=== PATIENT | male | born 1965 | race African-American/Black ===

== ENCOUNTER 2016-06-09 15:58 | Inpatient (IN) | payer OTHER ==
[~2016-06-09] VITALS: Ht 188 cm; Wt 123.7 kg
[~2016-06-09 15:58] MED LIST: ACYCLOVIR800 MG PO; CITALOPRAM HBR20 MG PO; DICLOFENAC SODI75 MG; FLEXERIL10 MG PO; HYDROCODON-ACE1 EAC5; LIDODERM 5% P1 PATCH; MOBIC15 MG PO; NAPROSYN500 MG PO; NORCO 5/3251 TABLET PO; PREDNISONE10 M1; SELENIUM SULFI118 ML; TRAMADOL HCL50 MG; ULTRAM50 MG PO; WELLBUTRIN100 MG PO
[2016-06-09] MEDS ORDERED: PERCOCET 7.51 TABLET PO (16:54)
[2016-06-09] MEDS ORDERED: MORPHINE SULFAT15 M1 PO (16:55)
[2016-06-09 19:41] LABS: HEMATOCRIT 42.3 % (38.0-50.0); MCH 30.1 PG (29.0-34.0); MCHC 34.5 G/DL (30.0-36.0); MCV 87.2 FL (86-99); MEAN PLAT.VOLUME 9.7 uM^3 (9.0-12.4); PLATELET COUNT 182 K/uL (156-360); RBC DIS.WIDTH-CV 14.4 % (11.8-14.6); RBC DIS.WIDTH-SD 45.4 % (39-53); RED BLOOD COUNT 4.85 M/uL (4.00-5.50); WHITE BLOOD COUNT 6.5 K/uL (4.1-10.2)
[2016-06-09 19:53] LABS: CHLORIDE 106 mEq/L (99-109); POTASSIUM 3.6 mEq/L (3.7-5.4); SODIUM 139 mEq/L (136-147)
[2016-06-09 19:55] LABS: GLUCOSE 138 mg/dL (70-99)
[2016-06-09 19:56] LABS: ANION GAP 9 MEQ/L (2-14)
[2016-06-09 19:57] LABS: TOTAL BILIRUBIN 0.6 mg/dL (0.0-1.0)
[2016-06-09 19:58] LABS: SERUM ETHYL ALCOHOL < 10 mg/dL
[2016-06-09 19:59] LABS: GFR ESTIMATE (CALCULATED) > 59 mL/min/
[2016-06-09 20:00] LABS: ALKALINE PHOSPHATASE 68 IU/L (3-129)
[2016-06-09 20:01] LABS: UREA NITROGEN (BUN) 14 mg/dL (9-23)
[2016-06-09 20:02] LABS: SALICYLATE < 5.0 MG/DL (15-30)
[2016-06-09 22:12] VITALS: BP 124/77
[2016-06-09] MEDS ORDERED: NAPRELAN750 MG PO (22:18)
[2016-06-09] MEDS ORDERED: ROBITUSSIN100 MG/5 M PO (22:28)
[2016-06-10] MEDS ORDERED: RELAFEN750 MG PO (00:13)
[2016-06-10 09:18] VITALS: BP 120/78
[2016-06-10 15:56] VITALS: BP 112/67
[2016-06-11 07:32] VITALS: BP 131/75
[2016-06-11 15:50] VITALS: BP 117/68
[2016-06-12 08:00] VITALS: BP 120/78
[2016-06-12] MEDS ORDERED: BUPROPION HCL150 M2 PO (11:34)
== END 2016-06-12 13:38 | disposition home or self-care (01) | DRG 885 ==
LOC: EME 15:58 → 1WEST 20:51 → EDOF 20:51 → 1WEST 22:04
PROVIDERS: Physician Assistant
DX: F33.9 Major depressive disorder, recurrent, unspecified (principal); F10.14 Alcohol abuse with alcohol-induced mood disorder; R45.851 Suicidal ideations; F23 Brief psychotic disorder; F14.10 Cocaine abuse, uncomplicated; R45.850 Homicidal ideations; F17.210 Nicotine dependence, cigarettes, uncomplicated; E66.3 Overweight; Z68.35 Body mass index [BMI] 35.0-35.9, adult
CPT/HCPCS: 80053; 81003; 84443; 85027; 90839; 99281; 99284; G0480

== ENCOUNTER 2016-08-19 07:04 | Emergency (ER) | payer OTHER ==
[~2016-08-19] VITALS: Ht 188 cm; Wt 119.7 kg
[~2016-08-19 07:04] MED LIST changes: +BUPROPION HCL150 M2 PO; +MORPHINE SULFAT15 M1 PO; +NAPRELAN750 MG PO; +PERCOCET 7.51 TABLET PO; +RELAFEN750 MG PO; +ROBITUSSIN100 MG/5 M PO
[2016-08-19 07:51] LABS: EOSINOPHIL (%) 1.8 % (0-5); EOSINOPHIL COUNT 0.1 K/uL (0-0.3); HEMATOCRIT 42.3 % (38.0-50.0); IMMATURE GRANULOCYTE (%) 0.3 % (0.0-0.7); INSTRUMENT ABS NEUTROPHIL CT 4.4 K/uL; LYMPHOCYTE COUNT 1.1 K/uL (1.0-2.8); MCH 31.3 PG (29.0-34.0); MCHC 34.8 G/DL (30.0-36.0); MEAN PLAT.VOLUME 9.5 uM^3 (9.0-12.4); MONOCYTE (%) 7.4 % (3-12); MONOCYTE COUNT 0.5 K/uL (0-0.8); NEUTROPHIL (%) 72.3 % (45-76); NEUTROPHIL COUNT 4.4 K/uL (1.8-6.4); PLATELET COUNT 202 K/uL (156-360); RBC DIS.WIDTH-CV 13.5 % (11.8-14.6); RBC DIS.WIDTH-SD 44.9 % (39-53); WHITE BLOOD COUNT 6.1 K/uL (4.1-10.2)
[2016-08-19 08:22] LABS: ANION GAP 10 MEQ/L (2-14); CHLORIDE 103 MEQ/L (99-109); POTASSIUM 3.7 MEQ/L (3.7-5.4); SAMPLE HEMOLYSIS CHECK 0; SAMPLE ICTERIC CHECK 0; SAMPLE LIPEMIA CHECK 0; SODIUM 139 MEQ/L (136-147)
[2016-08-19 08:29] LABS: GFR ESTIMATE (CALCULATED) > 59 mL/min/; GLUCOSE 84 mg/dL (70-99); SERUM ETHYL ALCOHOL < 10 mg/dL; UREA NITROGEN (BUN) 13 mg/dL (9-23)
[2016-08-19 12:17] LABS: ADD MIUA? YES; BILIRUBIN NEGATIVE; BLOOD SMALL; COLOR AMBER ((YELLOW)); GLUCOSE (STRIP) NEGATIVE; KETONES 20; LEUKOCYTES NEGATIVE; NITRITE NEGATIVE; PROTEIN (STRIP) 30; SPECIFIC GRAVITY 1.025 (1.000-1.030)
[2016-08-19 12:32] LABS: ADD MEDTOX COMMENT Y; AMPHETAMINE NEGATIVE (500 ng/mL); BARBITURATES NEGATIVE (200 ng/mL); BENZODIAZEPINES NEGATIVE (150 ng/mL); COCAINE PRESUMPTIVE POSITIVE (150 ng/mL); INTERNAL CONTROLS VALID? YES; METHADONE NEGATIVE (200 ng/mL); METHAMPHETAMINE NEGATIVE (500 ng/mL); OPIATES (MORPHINE) NEGATIVE (100 ng/mL); OXYCODONE NEGATIVE (100 ng/mL); PHENCYCLIDINE PRESUMPTIVE POSITIVE (25 ng/mL); PROPOXYPHENE NEGATIVE (300 ng/mL); THC CANNABINOIDS PRESUMPTIVE POSITIVE (50 ng/mL); TRICYCLIC ANTIDEPRESSANTS NEGATIVE (300 ng/mL)
[2016-08-19 12:36] LABS: BACTERIA NONE SEEN /HPF; CALCIUM OXALATE CRYSTALS 1+ /HPF; EPITHELIAL CELLS RARE /HPF; HYALINE CASTS 0-5 /LPF; MUCUS 3+ /LPF; WHITE BLOOD CELLS 0-5 /HPF (0-5)
[2016-08-19] MEDS ORDERED: BUPROPION HCL150 M2 PO (13:40)
[2016-08-19] MEDS ORDERED: DAILY VITE1 EAC1 PO (13:40)
[2016-08-19] MEDS ORDERED: VOLTAREN 1% GE100 GM TP (13:41)
[2016-08-19] MEDS ORDERED: MORPHINE SULFAT30 M2 PO (14:25)
[2016-08-19 19:54] VITALS: BP 133/86
== END 2016-08-19 20:00 ==
LOC: EME 07:04
PROVIDERS: Emergency Medicine
DX: F33.2 Major depressive disorder, recurrent severe without psychotic features (principal); R45.851 Suicidal ideations; F19.10 Other psychoactive substance abuse, uncomplicated; G89.29 Other chronic pain; Z72.0 Tobacco use
CPT/HCPCS: 80048; 81003; 84999; 85025; 90837; 99281; 99285; G0480

== ENCOUNTER 2017-02-01 12:18 | Emergency (ER) | payer OTHER ==
[~2017-02-01] VITALS: Ht 188 cm; Wt 116.4 kg
[~2017-02-01 12:18] MED LIST changes: +DAILY VITE1 EAC1 PO; +MORPHINE SULFAT30 M2 PO; +VOLTAREN 1% GE100 GM TP
[2017-02-01 13:07] LABS: HEMATOCRIT 41.3 % (38.0-50.0); MCH 30.8 PG (29.0-34.0); MCHC 34.4 G/DL (30.0-36.0); MCV 89.6 FL (86-99); MEAN PLAT.VOLUME 9.4 uM^3 (9.0-12.4); PLATELET COUNT 202 K/uL (156-360); RBC DIS.WIDTH-CV 14.6 % (11.8-14.6); RBC DIS.WIDTH-SD 47.9 % (39-53); RED BLOOD COUNT 4.61 M/uL (4.00-5.50); WHITE BLOOD COUNT 8.1 K/uL (4.1-10.2)
[2017-02-01 13:14] LABS: CHLORIDE 105 mEq/L (99-109); POTASSIUM 3.8 mEq/L (3.7-5.4); SODIUM 141 mEq/L (136-147)
[2017-02-01 13:15] LABS: GLUCOSE 78 mg/dL (70-99)
[2017-02-01 13:17] LABS: ANION GAP 16 MEQ/L (2-14)
[2017-02-01 13:19] LABS: GFR ESTIMATE (CALCULATED) > 59 mL/min/; SERUM ETHYL ALCOHOL < 10 mg/dL
[2017-02-01 13:20] LABS: UREA NITROGEN (BUN) 15 mg/dL (9-23)
[2017-02-01 13:39] LABS: AMPHETAMINE NEGATIVE (500 ng/mL); BARBITURATES NEGATIVE (200 ng/mL); BENZODIAZEPINES NEGATIVE (150 ng/mL); COCAINE PRESUMPTIVE POSITIVE (150 ng/mL); INTERNAL CONTROLS VALID? YES; METHADONE NEGATIVE (200 ng/mL); METHAMPHETAMINE NEGATIVE (500 ng/mL); OPIATES (MORPHINE) PRESUMPTIVE POSITIVE (100 ng/mL); OXYCODONE NEGATIVE (100 ng/mL); PHENCYCLIDINE NEGATIVE (25 ng/mL); PROPOXYPHENE NEGATIVE (300 ng/mL); THC CANNABINOIDS PRESUMPTIVE POSITIVE (50 ng/mL); TRICYCLIC ANTIDEPRESSANTS NEGATIVE (300 ng/mL)
[2017-02-01 13:40] LABS: ADD MEDTOX COMMENT Y
[2017-02-01 14:43] LABS: OPIATES QUANTITATIVE VALUE 0 NG/ML
[2017-02-01 17:00] VITALS: BP 155/98
== END 2017-02-01 17:04 | disposition home or self-care (01) ==
LOC: EME 12:18
DX: F43.20 Adjustment disorder, unspecified (principal); F33.1 Major depressive disorder, recurrent, moderate; F10.99 Alcohol use, unspecified with unspecified alcohol-induced disorder; F14.90 Cocaine use, unspecified, uncomplicated; F12.90 Cannabis use, unspecified, uncomplicated; Z72.0 Tobacco use
CPT/HCPCS: 80048; 84999; 85027; 90839; 93005; 99281; 99285; G0480

== ENCOUNTER 2017-02-02 02:17 | Emergency (ER) | payer OTHER ==
[~2017-02-02] VITALS: Ht 188 cm; Wt 117.8 kg
[2017-02-02 03:06] VITALS: BP 131/94
== END 2017-02-02 03:27 | disposition home or self-care (01) ==
LOC: EME 02:17
DX: F14.10 Cocaine abuse, uncomplicated (principal); F10.10 Alcohol abuse, uncomplicated; F11.20 Opioid dependence, uncomplicated; Z72.0 Tobacco use
CPT/HCPCS: 93005; 99281; 99283